=== PATIENT | female | born 1950 | race African-American/Black ===

== ENCOUNTER 2016-08-11 10:02 | Emergency (ER) | payer OTHER ==
[~2016-08-11] VITALS: Ht 162.6 cm; Wt 96.0 kg
[~2016-08-11 10:02] MED LIST: AMBIEN10 MG PO; AMLODIPINE BESYL5 MG PO; Ambien PO; Antivert PO; BACLOFEN10 MG PO; CALTRATE 6001 TABLET PO; CELEBREX200 MG PO; CIPRO500 MG PO; CITRATE OF MAG296 ML PO; COLACE100 MG PO; COLCHICINE,COL0.6 MG PO; Calcium Carbonate,Ca PO; DARVOCET-N 1001 EACH PO; DIAZEPAM5 MG PO; DIETARY SUPPLEMENT; FLEXERIL10 MG PO; Flexeril PO; GABAPENTIN300 M1 PO; HYDROXYZINE HCL25 MG PO; LBS II; LINZESS145 MCG PO; LISINOPRIL10 MG PO; LISINOPRIL20 MG PO; LORTAB 5-325 M1 EACH PO; LYRICA75 MG PO; MECLIZINE HCL25 MG PO; METAMUCIL PACKE1 PKT PO; METAMUCIL1 EACH PO; MULTIVITAMIN1 EAC2 PO; NORVASC5 MG PO; OXYCODONE HCL5 MG PO; PRILOSEC40 MG PO; PYRIDOXINE,VIT100 MG PO; REFRESH TEARS15 ML BOTH EYES; TRIAMTERENE-HC1 EACH PO; ULTRAM50 MG PO; VITAMIN D1000 INTUN PO; ZESTRIL,PRINIVI40 MG PO; ZOFRAN4 MG PO
[2016-08-11] MEDS ORDERED: OTEZLA30 MG PO (10:31)
[2016-08-11] MEDS ORDERED: METOPROLOL SUCC25 MG PO (10:31)
[2016-08-11] MEDS ORDERED: FLEXERIL5 MG PO (10:31)
[2016-08-11] MEDS ORDERED: OXAYDO5 MG PO (10:32)
[2016-08-11 11:00] LABS: MCH 27.9 PG (29.0-34.0); MCHC 32.9 G/DL (30.0-36.0); MCV 84.7 FL (83-99); MEAN PLAT.VOLUME 9.4 uM^3 (9.5-12.4); PLATELET COUNT 272 K/uL (156-360); RBC DIS.WIDTH-SD 43.1 % (39-53); RED BLOOD COUNT 4.84 M/uL (3.80-5.20)
[2016-08-11 11:08] LABS: CHLORIDE 108 mEq/L (99-109); POTASSIUM 4.1 mEq/L (3.7-5.4); SODIUM 139 mEq/L (136-147)
[2016-08-11 11:09] LABS: GLUCOSE 122 mg/dL (70-99); INTER. NORMALIZED RATIO 1.2; PROTHROMBIN TIME 12.5 (9.2-11.2); PTT 31.1 (25-32)
[2016-08-11 11:11] LABS: ANION GAP 9 MEQ/L (2-14)
[2016-08-11 11:13] LABS: GFR ESTIMATE (CALCULATED) > 59 mL/min/
[2016-08-11 11:14] LABS: UREA NITROGEN (BUN) 8 mg/dL (9-23)
[2016-08-11 13:54] LABS: APPEARANCE CLEAR/COLORLESS
[2016-08-11 13:57] LABS: RED CELL AREA COUNTED 18; RED CELL COUNT 1 /MM^3 (0-1); RED CELL DILUTION 1; WBC AREA COUNTED 18; WBC DILUTION 1; WHITE CELL COUNT 0 /MM^3 (0-5); WHITE CELL RAW COUNT 0
[2016-08-11 13:58] LABS: CSF EOSINOPHILS 0 % (0-25); MONO RAW COUNT 0; MONONUCLEAR WBC'S 0 % (50-90); POLY RAW COUNT 0; POLYNUCLEAR WBC'S 0 % (0-3)
[2016-08-11 15:42] VITALS: BP 155/87
== END 2016-08-11 15:55 | disposition home or self-care (01) ==
LOC: EME 10:02
PROVIDERS: Physician Assistant
PROC: 009U3ZX Drainage of Spinal Canal, Percutaneous Approach, Diagnostic (ICD-10-PCS; principal; 2016-08-11)
DX: R51 Headache (principal); I10 Essential (primary) hypertension
CPT/HCPCS: 70450; 80048; 82945; 84157; 85027; 85610; 85730; 87070; 87205; 89051; 93005; 99281; 99285

== ENCOUNTER 2016-09-23 10:15 | Emergency (ER) | payer OTHER ==
[~2016-09-23] VITALS: Ht 162.6 cm; Wt 92.8 kg
[~2016-09-23 10:15] MED LIST changes: +FLEXERIL5 MG PO; +METOPROLOL SUCC25 MG PO; +OTEZLA30 MG PO; +OXAYDO5 MG PO
[2016-09-23 11:08] LABS: HEMATOCRIT 45.6 % (36.0-46.0); MCHC 32.7 G/DL (30.0-36.0); MCV 85.6 FL (83-99); MEAN PLAT.VOLUME 10.1 uM^3 (9.5-12.4); PLATELET COUNT 260 K/uL (156-360); RBC DIS.WIDTH-CV 14.1 % (11.8-14.6); RED BLOOD COUNT 5.33 M/uL (3.80-5.20); WHITE BLOOD COUNT 9.1 K/uL (4.1-10.2)
[2016-09-23 11:28] LABS: CHLORIDE 103 mEq/L (99-109); POTASSIUM 4.2 mEq/L (3.7-5.4); SODIUM 137 mEq/L (136-147)
[2016-09-23 11:30] LABS: GLUCOSE 128 mg/dL (70-99)
[2016-09-23 11:32] LABS: ANION GAP 10 MEQ/L (2-14); TOTAL BILIRUBIN 0.7 mg/dL (0.0-1.0)
[2016-09-23 11:34] LABS: ALKALINE PHOSPHATASE 113 IU/L (3-129); GFR ESTIMATE (CALCULATED) > 59 mL/min/
[2016-09-23 11:35] LABS: UREA NITROGEN (BUN) 8 mg/dL (9-23)
[2016-09-23 11:37] LABS: LIPASE 26 U/L (1.0-51.0)
[2016-09-23 12:00] LABS: CREATINE KINASE 71 IU/L (1-294)
[2016-09-23 12:06] LABS: TROP-I INTERPRETATION NEGATIVE; TROPONIN-I < 0.01 ng/mL (0.0-0.30)
[2016-09-23 12:50] LABS: ADD MIUA? YES; BILIRUBIN NEGATIVE; BLOOD NEGATIVE; COLOR AMBER ((YELLOW)); GLUCOSE (STRIP) NEGATIVE; KETONES 5; LEUKOCYTES NEGATIVE; NITRITE NEGATIVE; PROTEIN (STRIP) 30; SPECIFIC GRAVITY 1.026 (1.000-1.030)
[2016-09-23 13:10] LABS: BACTERIA RARE /HPF; EPITHELIAL CELLS 1+ /HPF; MUCUS 2+ /LPF; RED BLOOD CELLS 0-5 /HPF (0-5); UCUL ADDED? NO; WHITE BLOOD CELLS 0-5 /HPF (0-5)
[2016-09-23] MEDS ORDERED: ZOFRAN4 MG PO (14:17)
[2016-09-23 14:29] VITALS: BP 135/88
[2016-09-25 16:54] LABS: HEMATOCRIT 45.6 % (36.0-46.0); MCHC 32.7 G/DL (30.0-36.0); MCV 85.6 FL (83-99); MEAN PLAT.VOLUME 10.1 uM^3 (9.5-12.4); PLATELET COUNT 260 K/uL (156-360); RBC DIS.WIDTH-CV 14.1 % (11.8-14.6); RED BLOOD COUNT 5.33 M/uL (3.80-5.20); WHITE BLOOD COUNT 9.1 K/uL (4.1-10.2)
[2016-09-25 17:17] LABS: ABS NEUTROPHIL COUNT 5.3; ANISOCYTOSIS 1+; ATYPICAL LYMPHOCYTE 1.9 %; BAND NEUTROPHILS 8.8 % (0-8.0); BURR CELLS 2+; EOSINOPHIL ABS CT 0; INSTRUMENT ABS NEUTROPHIL CT 5.2 K/uL; LYMPHOCYTES 31.4 % (15.0-45.0); PLAT.SUFFICIENCY ADEQUATE; POIKILOCYTOSIS 2+
== END 2016-09-23 14:30 | disposition home or self-care (01) ==
LOC: EME 10:15
PROVIDERS: Internal Medicine Hematology & Oncology
DX: R42 Dizziness and giddiness (principal); R10.9 Unspecified abdominal pain; M79.7 Fibromyalgia; I10 Essential (primary) hypertension; K21.9 Gastro-esophageal reflux disease without esophagitis; B19.20 Unspecified viral hepatitis C without hepatic coma; Z85.3 Personal history of malignant neoplasm of breast
CPT/HCPCS: 74177; 80053; 81003; 82550; 83690; 84484; 85025; 85027; 93005; 99281; 99285; J2405; J7030

== ENCOUNTER 2016-09-30 06:03 | Emergency (ER) | payer OTHER ==
[~2016-09-30] VITALS: Ht 162.6 cm; Wt 94.3 kg
[2016-09-30] MEDS ORDERED: PREDNISONE50 MG PO (06:38)
[2016-09-30 06:53] VITALS: BP 194/106
== END 2016-09-30 06:54 | disposition home or self-care (01) ==
LOC: EME 06:03
DX: L23.9 Allergic contact dermatitis, unspecified cause (principal); K21.9 Gastro-esophageal reflux disease without esophagitis; I10 Essential (primary) hypertension; M79.7 Fibromyalgia; Z85.3 Personal history of malignant neoplasm of breast
CPT/HCPCS: 99281; 99283; J7512